=== PATIENT | female | born 1970 | race Caucasian/White ===

== ENCOUNTER 2017-08-26 17:59 | Emergency (ER) | payer MEDICAID ==
[~2017-08-26] VITALS: Ht 162.6 cm; Wt 91.9 kg
[~2017-08-26 17:59] MED LIST: BP MED PO
[2017-08-26 18:13] VITALS: BP 133/72
[2017-08-26] MEDS ORDERED: PHENAZOPYRIDINE 100 MG TAB PO ONE (18:30)
[2017-08-26] MEDS ORDERED: LEVOFLOXACIN 500 MG TAB PO ONE (18:30)
[2017-08-26 18:51] VITALS: BP 114/89
== END 2017-08-26 18:53 | disposition home or self-care (01) ==
LOC: MED 17:59
DX: N30.90 Cystitis, unspecified without hematuria (principal)
CPT/HCPCS: 81025; 99283

== ENCOUNTER 2018-09-06 14:03 | Emergency (ER) | payer SELFPAY ==
[~2018-09-06] VITALS: Ht 162.6 cm; Wt 93.7 kg
[2018-09-06 14:16] VITALS: BP 124/87
--- NOTE | 2018-09-06 14:43 | NUR ---
PATIENT AMBULATED TO ER BED 4.
--- NOTE | 2018-09-06 14:55 | NUR ---
C/O GENERALIZED WEAKNESS, HEADACHE, DIZZYNESS, AND NAUSEA X4 DAYS. PT REPORTS THROBING PAIN IN BACK OF HEAD AT 10/10. PT REPORTS TREATING WITH IBUPROFEN WITH SOME RELIEF. SKIN IS PINK/WARM/DRY; AAOX4 WITH EVEN AND STEADY GAIT; LUNGS CLEAR BL; HR EVEN AND REGULAR; PT DENIES ANY FEVER, CP, SOB, OR COUGH AT THIS TIME; PATIENT STATES PAIN OF 10/10 AT THIS TIME; VSS; PATIENT POSITIONED FOR COMFORT; HOB ELEVATED; BEDRAILS UP X2; BED DOWN. ER MD MADE AWARE OF PT STATUS.
[2018-09-06] MEDS ORDERED: LORazepam 0.5 MG TAB PO ONE (15:35)
[2018-09-06 15:51] LABS: BASOPHILS % (AUTO) 0.5 % (0.0-2.0); EOSINOPHILS # (AUTO) 0.3 K/uL (0-0.4); EOSINOPHILS % (AUTO) 3.2 % (0.0-4.0); HEMATOCRIT 38.9 % (36-48); HEMOGLOBIN 13.1 g/dL (12.0-16.0); LYMPHOCYTES # (AUTO) 2.8 K/uL (2.5-16.5); LYMPHOCYTES % (AUTO) 31.1 % (20.5-51.1); MEAN CORPUSCULAR HEMOGLOBIN 30 pg (27-31); MEAN CORPUSCULAR HGB CONC 34 g/dL (33-37); MEAN CORPUSCULAR VOLUME 89.4 fL (80-94); MONOCYTES # (AUTO) 0.7 K/uL (0.8-1.0); MONOCYTES % (AUTO) 8.1 % (1.7-9.3); NEUTROPHILS # (AUTO) 5.2 K/uL (1.8-7.7); NEUTROPHILS % (AUTO) 57.1 % (42.2-75.2); PLATELET COUNT (AUTO) 256 K/uL (140-450); RED BLOOD CELL COUNT(AUTO) 4.35 MIL/uL (4.20-5.40)
[2018-09-06 15:53] LABS: APPEARANCE,URINE CLEAR (CLEAR); BILIRUBIN,URINE NEGATIVE (NEGATIVE); BLOOD, URINE NEGATIVE (NEGATIVE); COLOR,URINE YELLOW (YELLOW); NITRITE, URINE NEGATIVE (NEGATIVE); UGLUCOSE NEGATIVE (NEGATIVE)
[2018-09-06 15:55] LABS: ANION GAP 13.9 (8-16); CARBON DIOXIDE 26.8 mmol/L (21-32); CREATININE 0.7 mg/dL (0.6-1.3); POTASSIUM 3.7 mmol/L (3.5-5.1)
[2018-09-06 15:58] LABS: LEUKOCYTE ESTERASE ,URINE NEGATIVE (NEGATIVE)
[2018-09-06 16:08] LABS: ALBUMIN 3.6 g/dL (3.4-5.0); TOTAL BILIRUBIN 0.2 mg/dL (0.0-1.0)
--- NOTE | 2018-09-06 16:55 | NUR ---
pt stated pain relieved. 07/21. family at bedside. will continue to monitor.
[2018-09-06 17:51] VITALS: BP 130/78
--- NOTE | 2018-09-06 17:51 | NUR ---
Patient discharged with v/s stable. Written and verbal after care instructions given and explained. Patient verbalized understanding. Ambulatory with steady gait. All questions addressed prior to discharge. Advised to follow up with PMD.
== END 2018-09-06 17:51 | disposition home or self-care (01) ==
LOC: MED 14:03
DX: M79.10 Myalgia, unspecified site (principal); R53.1 Weakness; R42 Dizziness and giddiness; R11.0 Nausea; E11.9 Type 2 diabetes mellitus without complications; I10 Essential (primary) hypertension
CPT/HCPCS: 36415; 70450; 80053; 81003; 81025; 82948; 83880; 84484; 85025; 93005; 99284